=== PATIENT | female | born 1980 | race Caucasian/White ===

== ENCOUNTER 2016-11-29 13:21 | Emergency (ER) | payer OTHER ==
[~2016-11-29] VITALS: Ht 162.6 cm; Wt 99.6 kg
[~2016-11-29 13:21] MED LIST: ALBUTEROL SULF8.5 GM IH; CELEXA40 MG PO; FLONASE16 G1 BOTH NARES; PROVENTIL,2.5 MG/3 M IH; SINGULAIR10 MG PO; XANAX0.25 MG PO; ZOFRAN ODT4 MG PO; [UNRECOGNIZED DRUG - OTHER] MC
[2016-11-29 13:23] VITALS: BP 142/94
== END 2016-11-29 13:47 | disposition left against medical advice (07) ==
LOC: EME 13:21
DX: R45.1 Restlessness and agitation (principal); F41.8 Other specified anxiety disorders; Z53.29 Procedure and treatment not carried out because of patient's decision for other reasons; J30.9 Allergic rhinitis, unspecified; F17.200 Nicotine dependence, unspecified, uncomplicated; Z91.018 Allergy to other foods
CPT/HCPCS: 99281; 99283